=== PATIENT | female | born 1930 | race Caucasian/White ===

== ENCOUNTER 2016-10-05 18:32 | Observation (INO) | payer MEDICARE, MEDICAID ==
--- NOTE | 2016-10-05 19:08 | ED Physician Chart ---
Chief Complaint/HPI - Patient Information Date Seen:: 10/05/16 Time Seen:: 19:00 Chief Complaint:: Left supraorbital laceration. History of Present Illness:: Pt was brought in by ambulance from nursing facility, reportedly she tripped over another patient's wheelchair and sustained laceration at L supraorbital region. H & P are limited because pt has profound intellectual disability and is unable to cooperate. Info is primarily from review of limited transfer documents. Pt appears to be agitated. Last tetanus immunization is unknown. Allergies:: Allergies Allergy/AdvReac Type Severity Reaction Status Date / Time No Known Allergies Allergy Verified 10/05/16 18:52 Vitals:: Vital Signs - 8 hr 10/05/16 18:45 Temp 98.0 F HR 139 RR 16 BP 146/96 O2 Sat % 94 Historian:: Medical Records (from transferring facility.) Family MD/PCP:: Dr. Mijares LMP:: Postmenopausal. Review:: Nurse's Note Reviewed, Transfer documents Reviewed Review of Systems - Review of Systems General/Constitutional: Other (Pt does not cooperate for ROS.) Past Medical History - Past Medical History Past Medical History: PUD/GERD, Arthritis, Dementia, Other (osteopenia. L eye blindness.) Family History: Other (Pt is unable to provide info on FHx.) Social History: Care Facility, Other (Pt is unable to provide info on SHx.) Surgical History: other (pt is unable to provide info on Surgical Hx.) Psychiatricy History: Dementia Medication: Reviewed Family Medical History - Family Member Mother History Unknown: Yes Physical Exam - Physical Examination General/Constitutional: Awake, Well-developed, well-nourished, Alert, No distress (except appears to be agitated.), Non-toxic appearing, Ambulatory Other Gen/Cons comments:: Pt is ambulatory without assistance without difficulty. Other Head comments:: An approx 1.3 cm superficial laceration noticed at L supraorbital region that is naturally approximated. No erythema, swelling or exudate. No bony taperring. No active bleeding. No skull deformity. Eyes: Lids, conjuctiva normal, EOMI Other Eyes comments:: L eye has chronic changes with corneal opacification. Skin: No lymphadenopathy Other Skin comments:: see Head exam above. ENMT: External ears, nose nl, TM canals nl (No hemoptympanus), Nasal exam nl, Oropharynx nl, Tonsils nl Neck: Nontender, Full ROM w/o pain, No JVD, No nuchal rigidity, No mass, No stridor Respiratory: Nl effort/Exclusion, Clear to Auscultation, No Wheeze/Rhonchi/Rales Cardio Vascular: No murmur, gallop, rubs Other Cardio Vascular comments:: Regular rhythm with mild tachycardia. GI: No tenderness/rebounding/guarding, No organomegaly, No hernia, Normal BS's, Nondistended, No mass/bruits, No McBurney tenderness Other GI comments:: Abdomen is soft. Extremities: No edema Other Extremities comments:: All joints, including both hips, with spontaneous movements with good ROM. Both hips are nontender without detectabale abnormality. Other Neuro/Psych comments:: Alert. Spontaneous movements noticed in all 4 extremities. Pt responds to voice and tactile stimuli. Pt does not cooperate for full neurological exam. Misc: normal gait, Normal back, No paraspinal tenderness Labs/Radiology/EKG Results - Lab Results Results: Laboratory Tests 10/05/16 10/05/16 10/05/16 19:28 19:28 19:28 WBC RBC Hgb Hct MCV MCH MCHC Differential RDW Plt Count MPV Neutrophils % Lymphocytes % Monocytes % Eosinophils % Basophils % PT 9.5 INR 0.91 PTT (Actin FS) 25.4 L Sodium 136 Potassium 4.0 Chloride 106 Carbon Dioxide 23.9 Anion Gap 10.1 BUN 22 Creatinine 0.6 Est GFR ( Amer) TNP Est GFR (Non-Af Amer) TNP BUN/Creatinine Ratio 36.7 Glucose 132 H Calcium 8.9 Total Bilirubin 0.4 AST 17 ALT 12 Alkaline Phosphatase 72 Creatine Kinase 38 Troponin I < 0.01 L Total Protein 6.6 Albumin 3.5 L Globulin 3.1 Albumin/Globulin Ratio 1.1 10/05/16 20:22 WBC 11.2 H D RBC 4.83 Hgb 13.9 Hct 41.5 MCV 85.9 MCH 28.7 MCHC Differential 33.4 RDW 12.3 Plt Count 253 D MPV 8.0 Neutrophils % 79.2 Lymphocytes % 10.3 L Monocytes % 5.5 Eosinophils % 0.9 Basophils % 4.1 H PT INR PTT (Actin FS) Sodium Potassium Chloride Carbon Dioxide Anion Gap BUN Creatinine Est GFR ( Amer) Est GFR (Non-Af Amer) BUN/Creatinine Ratio Glucose Calcium Total Bilirubin AST ALT Alkaline Phosphatase Creatine Kinase Troponin I Total Protein Albumin Globulin Albumin/Globulin Ratio - Radiology Results Results: Head CT without contrast: Atrophy, sclerosis mastoids, ??nondisplaced fx left pareietal bone. Facial bone CT without contrast: Sinusitis. STS left orbit. The above are official reports per Dr. Kahlil Crockett, radiologist. I discussed with Dr. Crockett on the phone at about [id number] findings with ?nondisplaced fx left parietal bone. Dr. Crockett stated that the questionable fx in left parietal bone is minor and nondisplaced, so there is no neurosurgical emergency or treatment needed.. - EKG Interpretations EKG Time:: 19:33 Rhythm: Sinus tachycardia Rate: 132 Comments:: NSSTT changes. No acute ischemic changes. supervisor contact lens: Sinus tachycardia with VR 120. No ectopy. ED Septic Shock - . Is Septic Shock (SBP<90, OR Lactate>4 mmol\L) present?: No - <6hrs of presentation: Vital Signs: Vital Signs - 8 hr /12/17 18:45 Temp 98.0 F HR 139 RR 16 BP 146/96 O2 Sat % 94 Reassessment (Disposition) - Reassessment Reassessment:: 2150 Pt has been repeatedly evaluated. Pt has been calm and is at CT at the present. 2300 Pt has been calm with HR 90 to 100. Pt rests comfortably. CT reports just became available. Dr. Mijares is to be contacted. 0010 Case was discussed with Dr. Mijares with pertinent H & P, EKG, lab, and CT findings reviewed. He concurred with present management. Pt is to be admitted to [facility] for observation. Reassessment Condition:: Improved - Diagnosis Diagnosis:: s/p mechanical fall with superficial laceration at L supraorbital region at eyebrow level that approximates naturally. No suturing needed. Sinusitis. ? Nondisplaced fx Left parietal bone, stable without neurological emergency. Tachycardia related to mental agitation related to recent injury, stable and improved. Dementia - Patient Disposition Admitted to:: Med/Surg Admitting Medical Physician:: Joanna Mijares Time:: 00:15 Condition at Disposition:: Stable, Improved
[2016-10-05 19:52] LABS: INR 0.91 (0.5-1.4); PROTHROMBIN TIME (TEST) 9.5 SECONDS (9.5-11.5)
[2016-10-05 19:56] LABS: ALB/GLOB RATIO 1.1 (1.0-1.8); ALKALINE PHOSPHATASE 72 U/L (34-104); ANION GAP 10.1 (7.0-16.0); BILIRUBIN,TOTAL 0.4 mg/dL (0.3-1.0); BUN - UREA NITROGEN 22 mg/dL (7-25); BUN/CREATININE RATIO 36.7; CALCIUM SERUM 8.9 mg/dL (8.6-10.3); CARBON DIOXIDE 23.9 mEq/L (21.0-31.0); CHLORIDE 106 mEq/L (98-107); CREATININE - SERUM 0.6 mg/dL (0.6-1.2); GLUCOSE 132 mg/dL (70-105); SGOT 17 U/L (13-39); SGPT/ALT 12 U/L (7-52); SODIUM SERUM 136 mEq/L (136-145)
[2016-10-05 20:29] LABS: % BASOPHILS 4.1 % (0.0-2.0); % EOSINOPHILS 0.9 % (0.0-5.0); % LYMPHOCYTES 10.3 % (20.0-50.0); % MONOCYTES 5.5 % (2.0-10.0); % NEUTROPHILS 79.2 % (40.0-80.0); HEMATOCRIT 41.5 % (35.0-45.0); HEMOGLOBIN 13.9 gm/dL (11.7-16.1); MEAN CELL VOLUME 85.9 fl (81-100); MEAN CORPUSCULAR HEMOGLOBIN 28.7 pg (27.0-31.0); MEAN CORPUSCULAR HGB CONC 33.4 pg (28.0-36.0); NEUTROPHILE ABSOLUTE 8.8 Th/cmm (1.8-8.0); RED BLOOD COUNT 4.83 Mil/cmm (3.80-5.20); RED CELL DISTRIBUTION WIDTH 12.3 % (11.5-20.0)
[2016-10-05 20:33] LABS: PLATELET COUNT 253 Th/cmm (150-400); WHITE BLOOD COUNT 11.2 Th/cmm (4.8-10.8)
[2016-10-05] MEDS ORDERED: Triple Antibiotic 0.94 gm Pkt TP STA (23:06)
[2016-10-05] MEDS ORDERED: Sulfamethoxazole/TMP 800/160mg Tab PO ONE (23:07)
[2016-10-06] MEDS ORDERED: Fleet Enema 135 mL RC PRN ×2 (00:44→03:23)
[2016-10-06] MEDS ORDERED: Magnesium Hydroxide (MOM) 30 mL UDC PO PRN (00:44)
[2016-10-06] MEDS ORDERED: Triple Antibiotic 0.94 gm Pkt TP ONE (00:51)
[2016-10-06] MEDS ORDERED: Sulfamethoxazole/TMP 800/160mg Tab ONE (00:51)
[2016-10-06] MEDS ORDERED: Guaifenesin DM 10 ML UDC PO PRN (02:42)
[2016-10-06 05:53] LABS: % BASOPHILS 0.2 % (0.0-2.0); % EOSINOPHILS 0.3 % (0.0-5.0); % MONOCYTES 6.9 % (2.0-10.0); % NEUTROPHILS 78.6 % (40.0-80.0); HEMOGLOBIN 12.1 gm/dL (11.7-16.1); MEAN CELL VOLUME 84.6 fl (81-100); MEAN CORPUSCULAR HEMOGLOBIN 29.3 pg (27.0-31.0); MEAN CORPUSCULAR HGB CONC 34.7 pg (28.0-36.0); MEAN PLATELET VOLUME 8.6 fl; NEUTROPHILE ABSOLUTE 7.5 Th/cmm (1.8-8.0); PLATELET COUNT 256 Th/cmm (150-400); RED BLOOD COUNT 4.11 Mil/cmm (3.80-5.20); RED CELL DISTRIBUTION WIDTH 12.4 % (11.5-20.0); WHITE BLOOD COUNT 9.5 Th/cmm (4.8-10.8)
[2016-10-06 06:31] LABS: ALB/GLOB RATIO 1.1 (1.0-1.8); ALKALINE PHOSPHATASE 65 U/L (34-104); ANION GAP 8.4 (7.0-16.0); BILIRUBIN,TOTAL 0.4 mg/dL (0.3-1.0); BUN - UREA NITROGEN 21 mg/dL (7-25); CALCIUM SERUM 8.1 mg/dL (8.6-10.3); CARBON DIOXIDE 25.3 mEq/L (21.0-31.0); CHLORIDE 107 mEq/L (98-107); CREATININE - SERUM 0.5 mg/dL (0.6-1.2); GLUCOSE 117 mg/dL (70-105); MAGNESIUM 2.1 mg/dL (1.9-2.7); POTASSIUM SERUM 3.7 mEq/L (3.5-5.1); SGOT 21 U/L (13-39); SGPT/ALT 16 U/L (7-52); SODIUM SERUM 137 mEq/L (136-145)
[2016-10-06 07:37] LABS: HEMATOCRIT 34.8 % (35.0-45.0)
[2016-10-06] MEDS ORDERED: Guaifenesin DM 10 ML UDC PO SCH (09:00)
[2016-10-06] MEDS: Multivitamin w/ Minerals Tab PO SCH (09:16)
[2016-10-06] MEDS: Calcium Carb/Vit D 500 mg/200 U Tab PO SCH ×2 (09:17→17:29)
--- NOTE | 2016-10-06 09:42 | Diagnostic Imaging Report ---
CT scan of the brain without intravenous contrast HISTORY: Headache, trauma Total DLP equals 516 CTDI equals 32.9 Axial sections were obtained from the base of the skull to the vertex. There is enlargement of the ventricular system along with enlargement cerebral sulci and subarachnoid cisterns reflecting atrophy. No acute parenchymal abnormalities. No intracerebral hemorrhage. No mass effect or shift of midline structures. No extra-axial masses or abnormal fluid collections There is deformity involving the left parietal region of the skull with sclerotic margins. Findings may be associated with an old fracture. This is unchanged from prior exam of July 24, 2015. Sclerotic change involves the mastoid air cells system with inflammatory sequelae. Extensive mucosal thickening noted throughout the ethmoid sinuses and visualized portions of the maxillary sinuses. IMPRESSION: 1. No acute abnormalities 2. Cerebral atrophy 3. Mild deformity involving the left parietal bone of the skull with sclerotic margins that is unchanged from 07/22/2015. Findings may be related to an old fracture. 4. Sclerotic mastoid air cells consistent with inflammatory sequelae 5. Extensive mucosal thickening throughout the ethmoid sinuses and visualized portions of the maxillary sinuses
--- NOTE | 2016-10-06 09:44 | Diagnostic Imaging Report ---
CT scan facial bones HISTORY: Pain, trauma Total DLP equals 194 CTDI equals 15.6 Axial sections were obtained through the facial bones. Additional sagittal and coronal reformatted images are provided. There is retention of normal bony margins about the orbits. No fractures. The zygomatic arches are intact. The pterygoid plates are intact. Nasal bones appear normal. There is extensive severe mucosal thickening throughout the ethmoid, sphenoid, and maxillary sinuses. IMPRESSION: 1. No acute bony abnormalities 2. Extensive mucosal thickening throughout the maxillary, ethmoid, and sphenoid sinus regions.
[2016-10-06] MEDS: D5-0.45NS 1,000 ML IV SCH (17:29)
[2016-10-07 05:35] LABS: % BASOPHILS 0.5 % (0.0-2.0); % EOSINOPHILS 0.8 % (0.0-5.0); % LYMPHOCYTES 12.9 % (20.0-50.0); % MONOCYTES 8.8 % (2.0-10.0); HEMATOCRIT 36.6 % (35.0-45.0); HEMOGLOBIN 12.5 gm/dL (11.7-16.1); MEAN CELL VOLUME 86.1 fl (81-100); MEAN CORPUSCULAR HEMOGLOBIN 29.3 pg (27.0-31.0); MEAN CORPUSCULAR HGB CONC 34.1 pg (28.0-36.0); MEAN PLATELET VOLUME 8.2 fl; PLATELET COUNT 235 Th/cmm (150-400); RED BLOOD COUNT 4.25 Mil/cmm (3.80-5.20); RED CELL DISTRIBUTION WIDTH 12.3 % (11.5-20.0)
[2016-10-07 05:53] LABS: ALB/GLOB RATIO 1.1 (1.0-1.8); ALKALINE PHOSPHATASE 66 U/L (34-104); BILIRUBIN,TOTAL 0.6 mg/dL (0.3-1.0); BUN - UREA NITROGEN 16 mg/dL (7-25); CARBON DIOXIDE 25.3 mEq/L (21.0-31.0); CHLORIDE 107 mEq/L (98-107); CREATININE - SERUM 0.5 mg/dL (0.6-1.2); GLUCOSE 130 mg/dL (70-105); POTASSIUM SERUM 3.3 mEq/L (3.5-5.1); SGOT 18 U/L (13-39); SGPT/ALT 15 U/L (7-52); SODIUM SERUM 138 mEq/L (136-145)
[2016-10-07 06:02] LABS: WHITE BLOOD COUNT 14.4 Th/cmm (4.8-10.8)
[2016-10-07] MEDS: D5-0.45NS 1,000 ML IV SCH ×2 (06:40→21:46)
[2016-10-07] MEDS ORDERED: cefTRIAXone 1 GM in Sodium Chloride 0.9% 50 ML IV SCH (08:15)
[2016-10-07] MEDS: Calcium Carb/Vit D 500 mg/200 U Tab PO SCH ×2 (09:23→17:04)
[2016-10-07] MEDS: Multivitamin w/ Minerals Tab PO SCH (09:24)
--- NOTE | 2016-10-07 10:26 | History & Physical ---
CHIEF COMPLAINT: Status post mechanical fall of left supraorbital bruising and laceration. HISTORY OF PRESENT ILLNESS: This is an 86-year-old female with a history of dementia, intellectual disability, acid reflux disease, encephalopathy, who apparently fell down at [facility] and fell down and she tripped on her neighbor's wheelchair and ended up hitting her left supraorbital region. The patient was transferred to ER where a CT of the head showed no acute abnormalities. There was mild deformity involving the left parietal bone of the skull with sclerotic margins that is unchanged from 07/22/2015 and there was also a maxillofacial CT done at the ER showing no acute bony abnormalities. There was extensive mucosal thickening throughout the maxillary, ethmoid, sphenoid sinus rhythm. The patient has been admitted for further management and care. PAST MEDICAL HISTORY: As noted above. PAST SURGICAL HISTORY: Unknown. FAMILY HISTORY: Likely noncontributory. SOCIAL HISTORY: No tobacco, ETOH or illicit drug usage. Lives at [facility]. ALLERGIES: NKDA. OUTPATIENT MEDICATIONS: Tylenol 325 q. 4 p.r.n., ibuprofen 400 mg q. 8 hours p.r.n. for pain, Dulcolax 10 mg every day, calcium carbonate with vitamin D3 daily, famotidine 20 mg every day, Fleet enema 135 mL every day, phenergan DM 10 mL every day, milk of magnesia 30 mL q. 72 hours, multivitamins every day and she is on to Tamoxifen 20 mg every day. REVIEW OF SYSTEMS: Unable to be done given the patient's condition. PHYSICAL EXAMINATION: VITAL SIGNS: T-current 98.3, pulse 90, respirations 18, BP 110/62, satting 96% on room air. GENERAL: She is a well-developed elderly female who appears to be comfortable, not in acute distress. EXTREMITIES: There is a mild area of redness around the left supraorbital region and there is a laceration, but no erythema, swelling or exudate noted. There is no active bleeding at this time. HEENT: Appears to be otherwise within normal limits. NECK: There is no JVD or LAD. CARDIOVASCULAR: Regular rate and rhythm without any murmurs. LUNGS: Decreased, but clear to auscultation bilaterally. ABDOMEN: Soft, supple, nontender, nondistended, normoactive bowel sounds. EXTREMITIES: There is no edema in lower extremities. NEUROLOGIC: Difficult to assess as the patient does not follow commands, but appears to be nonfocal at this time. LABORATORY DATA: On admission, white count 11.2. Chemistry panel was within normal limits with glucose 132. Troponins are negative x 1 set. Liver function was normal. DIAGNOSTICS: On CT of the brain, no acute abnormalities, cerebral atrophy, mild deformity of the left parietal bone of the skull with sclerotic margins that is unchanged from 07/22/2015, sclerotic mastoid air cells consistent with inflammatory sequela and there is maxillofacial CT done on admission showing no acute bony abnormalities and extensive mucosal thickening throughout the maxillary, ethmoid and sphenoid sinus regions. IMPRESSION AND PLAN: 1. Status post fall with left supraorbital contusion, laceration. 2. Maxillary, ethmoid and sphenoid sinusitis. 3. History of acid reflux disease. 4. History of chronic encephalopathy. 6. Intellectual disability. 7. Leukocytosis. PLAN: The patient has been admitted to the medical floor for further management and care. The patient has been placed on some IV fluids and will be kept on her Motrin t.i.d. I will also put the patient on local skin care given her allergy. I will also place the patient on empiric IV antibiotics and will ask for a UA. She will be kept on her other medications as scheduled. JOB# [id number] RADHA
[2016-10-07 19:35] LABS: URINE BILIRUBIN NEGATIVE (NEGATIVE); URINE BLOOD NEGATIVE (NEGATIVE); URINE COLOR YELLOW; URINE GLUCOSE (UA) NEGATIVE (NEGATIVE); URINE KETONE NEGATIVE (NEGATIVE); URINE PROTEIN TRACE mg/dL (NEGATIVE)
[2016-10-07 19:36] LABS: URINE BACTERIA 1+ /hpf (NONE SEEN); URINE EPITHELIAL CELLS MANY /lpf (FEW); URINE RBC 0-1 /hpf (0-5)
[2016-10-08 05:59] LABS: % BASOPHILS 0.7 % (0.0-2.0); % EOSINOPHILS 4.6 % (0.0-5.0); % LYMPHOCYTES 22.5 % (20.0-50.0); % MONOCYTES 12.8 % (2.0-10.0); % NEUTROPHILS 59.4 % (40.0-80.0); HEMATOCRIT 36.1 % (35.0-45.0); HEMOGLOBIN 12.3 gm/dL (11.7-16.1); MEAN CELL VOLUME 85.1 fl (81-100); MEAN CORPUSCULAR HGB CONC 34.1 pg (28.0-36.0); MEAN PLATELET VOLUME 8.7 fl; NEUTROPHILE ABSOLUTE 5.7 Th/cmm (1.8-8.0); PLATELET COUNT 226 Th/cmm (150-400); RED BLOOD COUNT 4.24 Mil/cmm (3.80-5.20); RED CELL DISTRIBUTION WIDTH 12.3 % (11.5-20.0)
[2016-10-08 06:13] LABS: WHITE BLOOD COUNT 9.6 Th/cmm (4.8-10.8)
[2016-10-08 06:16] LABS: ANION GAP 7.9 (7.0-16.0); BUN - UREA NITROGEN 10 mg/dL (7-25); BUN/CREATININE RATIO 16.7; CARBON DIOXIDE 23.2 mEq/L (21.0-31.0); CHLORIDE 111 mEq/L (98-107); CREATININE - SERUM 0.6 mg/dL (0.6-1.2); GLUCOSE 109 mg/dL (70-105); MAGNESIUM 2.1 mg/dL (1.9-2.7); POTASSIUM SERUM 3.1 mEq/L (3.5-5.1); SODIUM SERUM 139 mEq/L (136-145)
[2016-10-08] MEDS ORDERED: Potassium Chloride 20 mEq ER Tab PO ONE (09:27)
--- NOTE | 2016-10-08 09:29 | Diagnostic Imaging Report ---
CHEST X-RAY: AP view INDICATION: Leukocytosis COMPARISON: Chest x-ray 07/24/2015 FINDINGS: Increased interstitial lung markings are noted. No focal consolidation or effusions. Borderline prominent heart is noted. Suboptimal lung volume are noted. Degenerative changes of the spine are noted. IMPRESSION: Increased interstitial lung markings, likely chronic. Note that the infiltrate of the right midlung cannot be excluded.
[2016-10-08] MEDS: Multivitamin w/ Minerals Tab PO SCH (09:54)
[2016-10-08] MEDS: Calcium Carb/Vit D 500 mg/200 U Tab PO SCH (09:54)
[2016-10-08] MEDS: D5-0.45NS 1,000 ML IV SCH (12:04)
--- NOTE | 2016-10-08 20:43 | Discharge Summary ---
ADMITTING DIAGNOSES: 1. Status post fall. 2. Left supraorbital contusion with laceration. 3. Maxillary ethmoid and sphenoid sinusitis. 4. Leukocytosis. 5. Hypokalemia. SECONDARY DIAGNOSES: Include history of acid reflux disease, history of chronic encephalopathy, history of intellectual disability. DISCHARGE DIAGNOSES: 1. Status post fall. 2. Left supraorbital contusion with laceration. 3. Maxillary ethmoid and sphenoid sinusitis. 4. Leukocytosis, resolved. 5. Hypokalemia, resolved. CONSULTANTS: There was no practice management consultant used during this admission. MAJOR PROCEDURES: CT of the brain showing no acute abnormalities. It showed cerebral atrophy, mild deformity of the left parietal bone of the skull and sclerotic margins are unchanged from 07/22/2015. There is also sclerotic mastoid air cells consistent with inflammatory sequelae. There was also a CT scan of the facial bones showing no acute abnormalities and there was extensive mucosal thickening throughout the maxillary, ethmoid, and sphenoid sinus regions. MEDICATIONS ON DISCHARGE: Ciprofloxacin 250 b.i.d. x 7 days, Dulcolax 10 mg q. 96 hours p.r.n. for severe constipation, Tylenol 650 q.4h. p.r.n. for fever or pain, Pepcid 20 mg at bedtime, fleet enema p.r.n. for severe constipation, Motrin 400 mg t.i.d. with meals, milk of magnesia 30 mL p.r.n. for mild constipation, multivitamins and minerals, and Tamoxifen 20 mg every day. BRIEF HOSPITAL COURSE: An 86-year-old female, who presented from [facility] with a contusion on the left supraorbital region. The patient had very small laceration and some bruising and on labs, she had a white count of 11.2 which by hospital day 2 had gone up to 14.4. The patient was treated with IV antibiotics and wound care and underwent above-mentioned diagnostics. She was also placed on low dose NSAIDs and other supportive care. Her white count did improve to a level of 9.6 and UA was consistent with UTI. CONDITION ON DISCHARGE: Stable. DISPOSITION: The patient will be discharged to [facility] on the above-mentioned medications. The patient will be followed up by her primary care doctor within 2-3 days. [facility]# [id number]
== END 2016-10-08 14:30 ==
LOC: ER 18:32 → MSI 10-06 00:15
PROVIDERS: ADMIT Internal Medicine; ATTEND Internal Medicine
DX: S01.81XA Laceration without foreign body of other part of head, initial encounter (principal); W18.09XA Striking against other object with subsequent fall, initial encounter; Y93.89 Activity, other specified; Y92.89 Other specified places as the place of occurrence of the external cause; Y99.8 Other external cause status; J32.2 Chronic ethmoidal sinusitis; J32.3 Chronic sphenoidal sinusitis; K21.9 Gastro-esophageal reflux disease without esophagitis; G93.40 Encephalopathy, unspecified; F79 Unspecified intellectual disabilities; D72.829 Elevated white blood cell count, unspecified
CPT/HCPCS: 99285; 96372; 93005; 70450; 70486; 84484; 36415 ×4; 85025 ×4; 85610; 82550; 80053 ×3; 87081; 90715; 97163; 97116 ×3; 83735 ×3; 97530 ×2; 81001; 96365; 96361; 96375; 97110; 71010; 80048; J2060 ×4; G0378 ×63; J0696; X3904; Z7610

== ENCOUNTER 2016-11-19 08:13 | Inpatient (IN) | payer MEDICARE, MEDICAID ==
[2016-11-19 08:22] VITALS: BP 130/100
[2016-11-19] MEDS ORDERED: ceFAZolin 1 GM in Sodium Chloride 0.9% 50 ML IV ONE (08:52)
--- NOTE | 2016-11-19 08:59 | ED Physician Chart ---
Chief Complaint/HPI - Patient Information Date Seen:: 11/19/16 Time Seen:: 08:54 Chief Complaint:: l forehead infection, l eye problem History of Present Illness:: pt was sent from [place] for this problem w not much info given. pt was started on keflex for a left scalp ?abscess a day or so ago. now ther is concern that rednedd has passed to damon left eye region. 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 she saw dr cr yesterday. no known fever. pt has dementia and cant answer any questions or comply w exam. Allergies:: Allergies Allergy/AdvReac Type Severity Reaction Status Date / Time No Known Allergies Allergy Verified 10/05/16 18:52 Vitals:: Vital Signs - 8 hr 11/19/16 08:22 Temp 99.3 F HR 111 RR 16 BP 130/100 Historian:: Medical Records Review:: Transfer documents Reviewed Review of Systems - Review of Systems General/Constitutional: No fever, No chills, No weight loss, No weakness, No diaphoresis, No edema, No loss of appetite Skin: No skin lesions, No rash, No bruising Head: No headache, No light-headedness Eyes: No loss of vision, Pain, No diplopia, Other (edema at l eyelid...) ENT: No earache, No nasal drainage, No sore throat, No tinnitus Neck: No neck pain, No swelling, No thyromegaly, No stiffness, No mass noted Cardio Vascular: No chest pain, No palpitations, No PND, No orthopnea, No edema Pulmonary: No SOB, No cough, No sputum, No wheezing GI: No nausea, No vomiting, No diarrhea, No pain, No melena, No hematochezia, No constipation, No hematemesis G/U: No dysuria, No frequency, No hematuria Musculoskeletal: No bone or joint pain, No back pain, No muscle pain Endocrine: No polyuria, No polydipsia Psychiatric: No prior psych history, No depression, No anxiety, No suicidal ideation, Other (nonverbal) Hematopoietic: No bruising, No lymphadenopathy Allergic/Immuno: No urticaria, No angioedema Neurological: No syncope, No focal symptoms, No weakness, No paresthesia, No headache, No seizure, No dizziness, Confusion, No vertigo Past Medical History - Past Medical History Past Medical History: PUD/GERD, Other (mental retardation, l eye reduced vision chronic, ?breast ca hx (guess by meds)) Social History: Care Facility Medication: Reviewed Family Medical History - Family Member Mother History Unknown: Yes Ethnicity: Living Status: Unknown Physical Exam - Physical Examination General/Constitutional: Awake, Well-developed, well-nourished, Alert, No distress, GCS 15, Non-toxic appearing, Ambulatory Other Gen/Cons comments:: pt has dementia and cant answer any questions or comply w exam. she cant communicate by any means. she fights me when ever I get close to her scalp wound or l eye. l scalp has a red warmth lt dicsoloration over aprox upper scalp and r side desc to around lt eye. 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 there is a small woundat left midd upper scalp about 2-3 cm w soft underlying fluctuance. has crusted scab on top..appears to have been draining already. Head: Atraumatic Eyes: Lids, conjuctiva normal, PERRL, EOMI Skin: Nl inspection, No rash, No skin lesions, No ecchymosis, Well hydrated, No lymphadenopathy ENMT: External ears, nose nl, Nasal exam nl, Lips, teeth, gums nl Neck: Nontender, Full ROM w/o pain, No JVD, No nuchal rigidity, No bruit, No mass, No stridor Respiratory: Nl effort/Exclusion, Clear to Auscultation, No Wheeze/Rhonchi/Rales Cardio Vascular: RRR, No murmur, gallop, rubs, NL S1 S2 GI: No tenderness/rebounding/guarding, No organomegaly, No hernia, Normal BS's, Nondistended, No mass/bruits, No McBurney tenderness : No CVA tenderness Extremities: No tenderness or effusion, Full ROM, normal strength in all extremities, No edema, Normal digits & nails Neuro/Psych: Alert/oriented, DTR's symmetric, Normal sensory exam, Normal motor strength, Judgement/insight normal, Mood normal, Normal gait, No focal deficits Misc: normal gait, Normal back, No paraspinal tenderness Labs/Radiology/EKG Results - Lab Results Results: Laboratory Tests 11/19/16 11/19/16 11/19/16 09:05 09:05 09:05 WBC 15.4 H D RBC 4.44 Hgb 12.9 Hct 37.7 MCV 85.0 MCH 29.1 MCHC Differential 34.2 RDW 12.7 Plt Count 329 D MPV 7.5 Neutrophils (Manual) 72 Lymphocytes 17 L Monocytes 8 Eosinophils 3 Platelet Estimate ADEQUATE Sodium 139 Potassium 3.9 Chloride 104 Carbon Dioxide 27.9 Anion Gap 11.0 BUN 16 Creatinine 0.6 Est GFR ( Amer) TNP Est GFR (Non-Af Amer) TNP BUN/Creatinine Ratio 26.7 Glucose 103 Whole Bld Lactic Acid 1.02 Calcium 9.1 Total Bilirubin 0.4 AST 15 ALT 14 Alkaline Phosphatase 77 Total Protein 6.3 Albumin 3.5 L Globulin 2.8 Albumin/Globulin Ratio 1.3 - Radiology Results Results: ct head/ orbits- diffuses sts /inflm change of left scalp cellulitis w phlegmon formation. ?small sebacious cyst. nonvisualization of left lenze, small gas pocket along l preseptal region. sclerosis of bilat mastoid air cells ?chronic infl process Assessment - Assessment General Assessment: cellulitis of left face/scalp. mastoiditis poss preseptal cellulitis on left eye. Critical Care Time: 70 Excludes all billable procedures: Yes This condition life threatening/high prob of deterioration: Yes Assessment/Comments:: iv abx, ct scan blood work dx.... ED Septic Shock - . Is Septic Shock (SBP<90, OR Lactate>4 mmol\L) present?: No - <6hrs of presentation: Vital Signs: Vital Signs - 8 hr 11/19/16 08:22 Temp 99.3 F HR 111 RR 16 BP 130/100 Reassessment (Disposition) - Reassessment Reassessment:: miguel angel waldrop at 1:40p..admit to ms Reassessment Condition:: Unchanged - Diagnosis Diagnosis:: 1 cellulitis w phlegmon left face/scalp. 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 abscess and/or sebacious cyst left scalp. - Aftercare/Follow up Instructions Aftercare/Follow-Up Instructions:: Counseled pt regarding lab results/diagnosis & need follow up - Patient Disposition Admitted to:: Med/Surg Condition at Disposition:: Unchanged
[2016-11-19 09:15] LABS: HEMATOCRIT 37.7 % (35.0-45.0); HEMOGLOBIN 12.9 gm/dL (11.7-16.1); MEAN CORPUSCULAR HEMOGLOBIN 29.1 pg (27.0-31.0); MEAN CORPUSCULAR HGB CONC 34.2 pg (28.0-36.0); MEAN PLATELET VOLUME 7.5 fl; RED BLOOD COUNT 4.44 Mil/cmm (3.80-5.20); RED CELL DISTRIBUTION WIDTH 12.7 % (11.5-20.0)
[2016-11-19 09:23] LABS: PLATELET COUNT 329 Th/cmm (150-400); WHITE BLOOD COUNT 15.4 Th/cmm (4.8-10.8)
[2016-11-19 09:37] LABS: EOSINOPHIL 3 % (0-5); NEUTROPHILS 72 % (40-80); PLATELET ESTIMATE ADEQUATE (NORMAL); TOTAL CELLS COUNTED 100
[2016-11-19 09:57] LABS: ALB/GLOB RATIO 1.3 (1.0-1.8); ALKALINE PHOSPHATASE 77 U/L (34-104); BILIRUBIN,TOTAL 0.4 mg/dL (0.3-1.0); BUN - UREA NITROGEN 16 mg/dL (7-25); BUN/CREATININE RATIO 26.7; CALCIUM SERUM 9.1 mg/dL (8.6-10.3); CHLORIDE 104 mEq/L (98-107); CREATININE - SERUM 0.6 mg/dL (0.6-1.2); GLUCOSE 103 mg/dL (70-105); POTASSIUM SERUM 3.9 mEq/L (3.5-5.1); SGOT 15 U/L (13-39); SGPT/ALT 14 U/L (7-52); SODIUM SERUM 139 mEq/L (136-145)
[2016-11-19 10:13] LABS: CARBON DIOXIDE 27.9 mEq/L (21.0-31.0)
--- NOTE | 2016-11-19 11:30 | Diagnostic Imaging Report ---
Head CT without intravenous contrast Indication: Pain, soft tissue swelling, possible abscess Comparison: CT facial bone the same day and CT abdomen on 10/06/2015 Technique: Axial images were obtained from the vertex to the skull base without IV contrast. Coronal reconstructions were made. Total DLP: 609, [id number] FINDINGS: Images of the brain obtained without contrast demonstrate no evidence of an acute hemorrhage. Mild atrophy is noted. The ventricles and basal cisterns are patent. No mass effect or midline shift. There is soft tissue swelling and inflammatory changes seen throughout the scalp. There may be a sebaceous cyst of the left frontal parietal scalp. Soft tissue swelling extends to forehead region and left preseptal region. Diffuse edema seen throughout these regions. No skull fracture. Sclerotic bilateral mastoid air cells are noted. IMPRESSION: No acute intracranial abnormality. Diffuse soft tissue swelling and inflammatory changes throughout the left scalp extending to the left forehead and left preseptal region. There may be small amount of fluid in these regions. Please correlate clinically as findings may be due to cellulitis and possible early phlegmon formation. There may also be a small sebaceous cyst of the left frontal parietal region. Note exam is limited due to lack of IV contrast Mild atrophy. Sclerotic bilateral mastoid air cells which may be due to underlying chronic inflammatory process.
--- NOTE | 2016-11-19 11:35 | Diagnostic Imaging Report ---
CT of the orbits without IV contrast History: Soft tissue swelling possible infection Comparison: CT head performed the same day Technique: Axial images of the facial bones and orbits were obtained without IV contrast. Reconstructions were made. Total DLP to 18, CTD I 15.8 Findings: There is diffuse soft tissue swelling of the left forehead and left preseptal region with areas of mild edema. There may be minimal fluid in these regions. There is nonvisualization of the left lens with pocket of gas noted along the left preseptal region. The left globe is intact. There is tortuosity of the bilateral optic nerves. The bilateral intraconal compartments are intact. Soft tissue swelling inflammatory changes extend to the left facial and left zygomatic regions. There is mucosal thickening throughout the paranasal sinuses. Sclerotic bilateral mastoid air cells are noted. No evidence of an acute fracture. Degenerative changes of bilateral TMJ joints are noted. IMPRESSION: Soft tissue swelling and inflammatory changes throughout the left facial region, left forehead and left preseptal region. There may be minimal fluid in these regions and possible early phlegmonous changes. Please correlate clinically for cellulitis. Follow-up is recommended. Note exam was limited due to lack of IV contrast. Nonvisualization of the left lens. A small pocket of gas is also seen along the left preseptal region. Please correlate with ophthalmologic examination. Nonspecific tortuosity of bilateral optic nerves Mucosal thickening throughout the paranasal sinuses Sclerotic bilateral mastoid air cells which may be due to chronic inflammatory process.
[2016-11-19] MEDS ORDERED: Fleet Enema 135 mL RC PRN (15:16)
[2016-11-19] MEDS ORDERED: Magnesium Hydroxide (MOM) 30 mL UDC PO PRN (15:16)
[2016-11-19 15:37] LABS: URINE BILIRUBIN NEGATIVE (NEGATIVE); URINE BLOOD NEGATIVE (NEGATIVE); URINE COLOR YELLOW; URINE GLUCOSE (UA) NEGATIVE (NEGATIVE); URINE KETONE NEGATIVE (NEGATIVE); URINE PROTEIN NEGATIVE (NEGATIVE); URINE UROBILINOGEN 0.2 E.U./dL (0.2 - 1.0)
[2016-11-19 15:38] LABS: URINE BACTERIA NONE SEEN /hpf (NONE SEEN); URINE EPITHELIAL CELLS NONE SEEN /lpf (FEW); URINE RBC NONE SEEN /hpf (0-5); URINE WBC NONE SEEN /hpf (0-5)
[2016-11-19] MEDS ORDERED: cefTRIAXone 1 GM in Sodium Chloride 0.9% 50 ML IV SCH (16:00)
[2016-11-19] MEDS: Calcium Carb/Vit D 500 mg/200 U Tab PO SCH (17:50)
[2016-11-19] MEDS: cefTRIAXone 1 GM in 0.9% NS 50 ML IV SCH (17:50)
--- NOTE | 2016-11-19 19:49 | Admit Criteria Form ---
Admit Criteria Forms - Admit Criteria Diagnosis: CELLULITIS Clinical Indications for Admission to Inpatient Care (Place 'X' for any and all applicable criteria): Admission is indicated for ANY ONE of the following(1)(2)(3)(4)(5): [ ]I. Limb-threatening infection [ ]II. High-risk comorbid condition as indicated by ANY ONE of the following: [ ]a) Uncontrolled diabetes (eg, HbA1c greater than 10% (0.1)) [ ]b) Cirrhosis [ ]c) Neutropenia [ ]d) Asplenia [ ]e) Immunosuppression [ ]f) Symptomatic heart failure [ ]III. Failure of outpatient therapy as indicated by ALL of the following: [ ]a) Progression or no improvement after adequate trial (minimum of 48 hours, with longer period for stable lower extremity infection) [ ]b) Adequate antibiotic regimen as indicated by use of ANY ONE of the following: [ ]i) First-generation cephalosporin (e.g., cephalexin) [ ]ii) Antistaphylococcal penicillin (e.g., dicloxacillin) [ ]iii) Penicillin-allergic patient regimen (clindamycin, extended-spectrum fluoroquinolone, or doxycycline) [ ]iv) Resistant organism (eg, methicillin-resistant Staphylococcus aureus) regimen (6) [ ]c) Outpatient intravenous therapy regimen is not appropriate due to ANY ONE of the following. (7)(8)(9)(10): [ ]i) It was tried and was not successful (eg, progression of infection). [ ]ii) It is not available or cannot be arranged in a clinically appropriate time frame (e.g., the next day). [ ]iii) Clinical presentation (eg, acuity of infection, rapidity of progression, confirmed or suspected bacteremia) is judged to require ALL of the following: [ ]1) Immediate initiation of intravenous therapy ( eg, cannot wait for next day) [ ]2) Intensity of patient monitoring and observation (eg, vital sign measurement, checks for infection progression) that cannot be provided at other than inpatient level of care [ ]IV. Mental status changes [ ]V. Bacteremia [ ]. Hemodynamic instability [ ]VII. Suspected necrotizing soft tissue infection (e.g., gas in tissue)(11)( 12) [ ]VIII. Orbital infection (13)(14) [ ]IX. Associated surgical procedure (e.g., abscess drainage, debridement) not amenable to outpatient, emergency department, or observation care [ ]X. Cutaneous gangrene [ ]XI. High fever (temperature greater than 39.5 degrees C (103.1 degrees F) (oral)) not responsive to outpatient, emergency department, or observation care therapy [X]XIII. Inpatient admission required rather than observation care (Also use Cellulitis: Observation Care as appropriate) because of ANY ONE of the following : [ ]a) Periorbital or perineal infection that is severe or worsening [ ]b) Severe pain requiring acute inpatient management [ ]c) IV fluid to replace significant ongoing (e.g., for over 24 hours) losses (greater than 3L/m2 per day) [ ]d) Compartment syndrome monitoring (17) [ ]e) Strict or protective (eg, laminar flow) isolation [ ]f) Urgent debridement or skin grafting [ ]g) Bone or joint debridement [ ]h) Immediate inpatient surgery [X]i) Other condition, treatment or monitoring requiring inpatient admission Extended stay beyond goal length of stay may be needed for (1)(18): [ ]a) Necrotizing soft tissue infection or fasciitis [ ]b) Gram-negative infection [ ]c) Methicillin-resistant Staphylococcal aureus (MRSA) infection [ ]d) Peripheral venous insufficiency with cellulitis [ ]e) Extensive edema [ ]f) Sepsis or continued Hemodynamic instability [ ]g) Continued high fever or mental status change [ ]h) Bacteremia [ ]i) Active serious comorbid conditions ( eg, heart failure, renal insufficiency) The original [facility] [employer] content created by [employer] [facility] [employer] has been revised. The portions of the content which have been revised are identified through the use of italic text or in bold, and [facility] has neither reviewed nor approved the modified material. All other unmodified content is copyright [facility] Please see references footnoted in the original [employer] edition 2016 Admit Criteria Met?: Yes
[2016-11-19] MEDS ORDERED: Guaifenesin DM 10 ML UDC PO SCH (21:00)
[2016-11-20 06:04] LABS: % BASOPHILS 0.7 % (0.0-2.0); % EOSINOPHILS 3.7 % (0.0-5.0); % LYMPHOCYTES 21.5 % (20.0-50.0); % MONOCYTES 7.5 % (2.0-10.0); % NEUTROPHILS 66.6 % (40.0-80.0); HEMATOCRIT 38.1 % (35.0-45.0); HEMOGLOBIN 12.8 gm/dL (11.7-16.1); MEAN CELL VOLUME 85.1 fl (81-100); MEAN CORPUSCULAR HEMOGLOBIN 28.7 pg (27.0-31.0); MEAN CORPUSCULAR HGB CONC 33.7 pg (28.0-36.0); MEAN PLATELET VOLUME 8.2 fl; NEUTROPHILE ABSOLUTE 8.8 Th/cmm (1.8-8.0); PLATELET COUNT 348 Th/cmm (150-400); RED BLOOD COUNT 4.47 Mil/cmm (3.80-5.20); RED CELL DISTRIBUTION WIDTH 12.6 % (11.5-20.0)
[2016-11-20 06:08] LABS: WHITE BLOOD COUNT 13.2 Th/cmm (4.8-10.8)
[2016-11-20 06:25] LABS: ALB/GLOB RATIO 1.1 (1.0-1.8); ALKALINE PHOSPHATASE 69 U/L (34-104); BILIRUBIN,TOTAL 0.4 mg/dL (0.3-1.0); BUN - UREA NITROGEN 16 mg/dL (7-25); BUN/CREATININE RATIO 26.7; CALCIUM SERUM 8.7 mg/dL (8.6-10.3); CARBON DIOXIDE 25.8 mEq/L (21.0-31.0); CHLORIDE 107 mEq/L (98-107); CREATININE - SERUM 0.6 mg/dL (0.6-1.2); GLUCOSE 82 mg/dL (70-105); MAGNESIUM 2.4 mg/dL (1.9-2.7); POTASSIUM SERUM 3.8 mEq/L (3.5-5.1); SGOT 13 U/L (13-39); SGPT/ALT 12 U/L (7-52); SODIUM SERUM 139 mEq/L (136-145)
[2016-11-20] MEDS: Multivitamin w/ Minerals Tab PO SCH (08:41)
[2016-11-20] MEDS: Calcium Carb/Vit D 500 mg/200 U Tab PO SCH ×2 (08:41→16:39)
[2016-11-20] MEDS ORDERED: TAMOXIFEN CITRATE 20 MG PO SCH (09:00)
--- NOTE | 2016-11-20 12:56 | History & Physical ---
ADMIT DATE: 11/20/2016 CHIEF COMPLAINT: Left scalp swelling, redness and left periorbital redness. HISTORY OF PRESENT ILLNESS: This is an 86-year-old female resident of [facility] with history significant for intellectual disability/mental retardation, osteoarthritis, generalized muscular weakness, history of anxiety, anemia, acid reflux disease, peptic ulcer disease, also history of arrhythmia, status post pacemaker placement, who was brought in into the ER with a 1-2 day history of left scalp swelling, redness and scab formation, now also with left facial, forehead and periorbital redness. There is no other history available as the patient is nonverbal and there is no documentation of fevers at the [facility] and [facility]. Pertinent findings at the ER included a white count of 15.4. The patient now has been admitted for further management and care. 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 There is also history of right eye stigmatism, history of UTIs, hemorrhoids, osteopenia and colonic polyps, history of breast CA. PAST SURGICAL HISTORY: Unknown. FAMILY HISTORY: Unknown. SOCIAL HISTORY: There is no history of tobacco, ETOH or illicit drug usage. She lives at [facility] and care under the care of Dr. Pedroza. ALLERGIES: NKDA. OUTPATIENT MEDICATIONS: Dulcolax suppository q. 96 hours p.r.n. for moderate constipation, famotidine 20 mg every day, Fleet enema p.r.n. q. 96 hours for severe constipation, Motrin 200 mg 2 tablets q. 8 hours p.r.n. for pain, MOM 30 mL q. 72 hours p.r.n. for mild constipation, multivitamins every day, calcium with vitamin D 1 tab b.i.d., tamoxifen 1 tab every day, Tylenol 650 q. 4 hours p.r.n. for fever or pain. REVIEW OF SYSTEMS: Unable to be obtained given the patient's condition. PHYSICAL EXAMINATION: VITAL SIGNS: T-max is 99.0, pulse 86, BP 104/67, respirations 18-19, and satting 95% on room air. GENERAL: She is a well-nourished, mentally disabled lady who is currently in bed, not in acute distress, but not able to answer any questions. HEAD AND NECK: On the left scalp, there is redness in the anterior aspect of the scalp. There is a round scab formation with some tenderness to it and some mild induration. The redness/erythema is confluent and extensively to the left frontal facial area and superior aspect of the periorbital region. There is no evidence of conjunctivitis at this time. CARDIAC: Regular rate and rhythm without any murmurs. LUNGS: Decreased, but clear to auscultation bilaterally. ABDOMEN: Soft, supple, nontender, nondistended, normoactive bowel sounds. EXTREMITIES: There is no edema in lower extremities. NEUROLOGIC: Difficult to assess given patient's condition. LABORATORY DATA: White count 15.4, rest of CBC was within normal limits. There was 17% lymphocytes. Chem-20 was within normal limits. Lactic acid level is 1.0. C-reactive protein 9.5. ESR is pending. UA was essentially within normal limits. Head CT shows no acute intracranial abnormality. There is diffuse soft tissue swelling and inflammatory changes throughout left scalp extending to the left forehead and left preseptal region. There might be a small amount of fluid in these regions. Please correlate clinically as findings may be due to cellulitis and possible early phlegmon formation. There might be a sebaceous cyst on the left frontoparietal region. Mild atrophy also noted. There are sclerotic bilateral mastoid air cells may be due to underlying chronic inflammatory process. Orbital CT, soft tissue swelling and inflammatory changes throughout the left facial region, left forehead and left preseptal region. There might be minimal fluid in these regions and possible early phlegmon changes. IMPRESSION: 1. Left-sided scalp cellulitis with phlegmon formation, we cannot rule out abscess. 2. Left facial cellulitis and preseptal cellulitis of the left eye. 3. Chronic mastoiditis. 4. History of mental retardation and intellectual disability. 5. History of generilized muscular weakness. 6. History of arrhythmia, status post pacemaker. 7. History of left eye blindness. 8. History of acid reflux disease. 9. Leukocytosis. PLAN: The patient has been admitted to the medical/surgical floor for further management and care. The patient has been placed on IV antibiotics, namely Rocephin and vancomycin for broad coverage. Surgical consult will be asked for given possibility of phlegmon/abscess, possible I and D. The patient also will be started on a low dose NSAIDs and will be kept on other medications as scheduled. Daily labs will be done to assess leukocytosis. [facility]# [id number] [facility]
[2016-11-20] MEDS: cefTRIAXone 1 GM in 0.9% NS 50 ML IV SCH (16:40)
--- NOTE | 2016-11-20 18:48 | History & Physical ---
ADMIT DATE: 11/19/2016 REFERRING PHYSICIAN: Dr. Mijares. REASON FOR CONSULTATION: Scalp infection. Thank you for referring this patient to me. HISTORY OF PRESENT ILLNESS: This is an 86-year-old female with approximately 2-3-day history of infection in the left temporal scalp area. The patient has mental retardation, unable to give any information. LABORATORY STUDIES: WBC is elevated to 15,400 with 17% lymphocytes. The chemistry is essentially normal except for C-reactive protein high at 9.5. CT of the head was done as well as the orbits and this shows no acute intracranial abnormality. The orbital CT scan, there is some soft tissue swelling and inflammatory changes throughout the left facial region and left forehead and left preseptal region. PHYSICAL EXAMINATION: The patient is unable to give any information. There is an inflamed area in the left temporal scalp about 4 cm in size, which is tender. There is moderate surrounding cellulitis. RECOMMENDATIONS: We will observe and apply hot compress, but excision biopsy may be necessary. We will ask this if patient has conservator or family that can give consent. JOB# [id number]
[2016-11-21 07:02] LABS: % BASOPHILS 0.1 % (0.0-2.0); % EOSINOPHILS 5.3 % (0.0-5.0); % LYMPHOCYTES 23.2 % (20.0-50.0); % MONOCYTES 4.9 % (2.0-10.0); % NEUTROPHILS 66.5 % (40.0-80.0); HEMATOCRIT 38.7 % (35.0-45.0); HEMOGLOBIN 12.7 gm/dL (11.7-16.1); MEAN CORPUSCULAR HEMOGLOBIN 27.9 pg (27.0-31.0); MEAN CORPUSCULAR HGB CONC 32.9 pg (28.0-36.0); MEAN PLATELET VOLUME 8.2 fl; NEUTROPHILE ABSOLUTE 7.9 Th/cmm (1.8-8.0); PLATELET COUNT 376 Th/cmm (150-400); RED BLOOD COUNT 4.55 Mil/cmm (3.80-5.20); RED CELL DISTRIBUTION WIDTH 12.6 % (11.5-20.0); WHITE BLOOD COUNT 11.9 Th/cmm (4.8-10.8)
[2016-11-21 07:16] LABS: INR 0.92 (0.5-1.4); PROTHROMBIN TIME (TEST) 9.6 SECONDS (9.5-11.5)
[2016-11-21 07:28] LABS: BUN - UREA NITROGEN 22 mg/dL (7-25); BUN/CREATININE RATIO 31.4; CALCIUM SERUM 8.7 mg/dL (8.6-10.3); CARBON DIOXIDE 25.9 mEq/L (21.0-31.0); CHLORIDE 109 mEq/L (98-107); CREATININE - SERUM 0.7 mg/dL (0.6-1.2); GLUCOSE 94 mg/dL (70-105); MAGNESIUM 2.4 mg/dL (1.9-2.7); POTASSIUM SERUM 3.9 mEq/L (3.5-5.1); SODIUM SERUM 141 mEq/L (136-145)
[2016-11-21] MEDS: Calcium Carb/Vit D 500 mg/200 U Tab PO SCH ×2 (08:20→17:18)
[2016-11-21] MEDS ORDERED: Midazolam 1mg/ml 2 ml vial IV ONE (09:04)
--- NOTE | 2016-11-21 09:10 | Diagnostic Imaging Report ---
Portable chest x-ray HISTORY: Shortness of breath The heart size is difficult to assess with portable technique in a poor inspiration. Allowing for the poor inspiration, no acute focal pulmonary processes are seen. No hilar or mediastinal abnormalities. IMPRESSION: No acute pulmonary processes
[2016-11-21] MEDS: Multivitamin w/ Minerals Tab PO SCH (09:15)
--- NOTE | 2016-11-21 09:17 | General Progress Note ---
Subjective - Review of Systems Service Date: 11/21/16 Events since last encounter: Operation: incision and drainage of abscess left scalp C and S ordered local wound care ordered Objective - Results Result Diagrams: 11/21/16 06:15 11/21/16 06:15 Recent Labs: Laboratory Last Values WBC 11.9 Th/cmm (4.8-10.8) H 11/21/16 06:15 RBC 4.55 Mil/cmm (3.80-5.20) 11/21/16 06:15 Hgb 12.7 gm/dL (11.7-16.1) 11/21/16 06:15 Hct 38.7 % (35.0-45.0) 11/21/16 06:15 MCV 85.0 fl (81-100) 11/21/16 06:15 MCH 27.9 pg (27.0-31.0) 11/21/16 06:15 MCHC Differential 32.9 pg (28.0-36.0) 11/21/16 06:15 RDW 12.6 % (11.5-20.0) 11/21/16 06:15 Plt Count 376 Th/cmm (150-400) 11/21/16 06:15 MPV 8.2 fl 11/21/16 06:15 Neutrophils % 66.5 % (40.0-80.0) 11/21/16 06:15 Lymphocytes % 23.2 % (20.0-50.0) 11/21/16 06:15 Monocytes % 4.9 % (2.0-10.0) 11/21/16 06:15 Eosinophils % 5.3 % (0.0-5.0) H 11/21/16 06:15 Basophils % 0.1 % (0.0-2.0) 11/21/16 06:15 Neutrophils (Manual) 72 % (40-80) 11/19/16 09:05 Lymphocytes 17 % (20-50) L 11/19/16 09:05 Monocytes 8 % (2-10) 11/19/16 09:05 Eosinophils 3 % (0-5) 11/19/16 09:05 Platelet Estimate ADEQUATE (NORMAL) 11/19/16 09:05 ESR 17 mm/hr (0-30) 11/20/16 05:11 PT 9.6 SECONDS (9.5-11.5) 11/21/16 06:15 INR 0.92 (0.5-1.4) 11/21/16 06:15 PTT (Actin FS) 23.8 SECONDS (26.0-38.0) L 11/21/16 06:15 Sodium 141 mEq/L (136-145) 11/21/16 06:15 Potassium 3.9 mEq/L (3.5-5.1) 11/21/16 06:15 Chloride 109 mEq/L (98-107) H 11/21/16 06:15 Carbon Dioxide 25.9 mEq/L (21.0-31.0) 11/21/16 06:15 Anion Gap 10.0 (7.0-16.0) 11/21/16 06:15 BUN 22 mg/dL (7-25) 11/21/16 06:15 Creatinine 0.7 mg/dL (0.6-1.2) 11/21/16 06:15 Est GFR ( Amer) TNP 11/21/16 06:15 Est GFR (Non-Af Amer) TNP 11/21/16 06:15 BUN/Creatinine Ratio 31.4 11/21/16 06:15 Glucose 94 mg/dL (70-105) 11/21/16 06:15 POC Glucose 84 MG/DL (70 - 105) 11/21/16 06:44 Whole Bld Lactic Acid 1.02 mmol/L (0.60-1.99) 11/19/16 09:05 Calcium 8.7 mg/dL (8.6-10.3) 11/21/16 06:15 Magnesium 2.4 mg/dL (1.9-2.7) 11/21/16 06:15 Total Bilirubin 0.4 mg/dL (0.3-1.0) 11/20/16 05:11 AST 13 U/L (13-39) 11/20/16 05:11 ALT 12 U/L (7-52) 11/20/16 05:11 Alkaline Phosphatase 69 U/L (34-104) 11/20/16 05:11 C-Reactive Protein 9.5 mg/dL (0.0-0.9) H 11/19/16 09:05 Total Protein 6.0 gm/dL (6.0-8.3) 11/20/16 05:11 Albumin 3.1 gm/dL (3.7-5.3) L 11/20/16 05:11 Globulin 2.9 gm/dL 11/20/16 05:11 Albumin/Globulin Ratio 1.1 (1.0-1.8) 11/20/16 05:11 Urine Source CATH 11/19/16 14:30 Urine Color YELLOW 11/19/16 14:30 Urine Clarity CLEAR (CLEAR) 11/19/16 14:30 Urine pH 7.0 11/19/16 14:30 Ur Specific [place] 1.015 (1.005-1.030) 11/19/16 14:30 Urine Protein NEGATIVE mg/dL (NEGATIVE) 11/19/16 14:30 Urine Glucose (UA) NEGATIVE mg/dL (NEGATIVE) 11/19/16 14:30 Urine Ketones NEGATIVE mg/dL (NEGATIVE) 11/19/16 14:30 Urine Blood NEGATIVE (NEGATIVE) 11/19/16 14:30 Urine Nitrate NEGATIVE (NEGATIVE) 11/19/16 14:30 Urine Bilirubin NEGATIVE (NEGATIVE) 11/19/16 14:30 Urine Urobilinogen 0.2 E.U./dL (0.2 - 1.0) 11/19/16 14:30 Ur Leukocyte Esterase NEGATIVE (NEGATIVE) 11/19/16 14:30 Urine RBC NONE SEEN /hpf (0-5) 11/19/16 14:30 Urine WBC NONE SEEN /hpf (0-5) 11/19/16 14:30 Ur Epithelial Cells NONE SEEN /lpf (FEW) 11/19/16 14:30 Urine Bacteria NONE SEEN /hpf (NONE SEEN) 11/19/16 14:30 - Physical Exam Vitals and I&O: Vital Signs Temp 97.9 F 11/21/16 04:00 Pulse 76 11/21/16 04:00 Resp 18 11/21/16 04:00 BP 101/50 11/21/16 04:00 Pulse Ox 95 11/21/16 04:00 Intake & Output 11/20/16 11/21/16 11/21/16 18:59 06:59 18:59 Intake Total 1750 Balance 1750 Intake: Intake, IV Amount 250 Vancomycin HCl 0.75 gm In 250 Sodium Chloride 0.9% 250 ml @ 165 mls/hr IV Q24H [facility] Rx#:[id number] Oral 1500 Other: # Voids 4 Active Medications: Current Medications Acetaminophen (Tylenol) 650 mg PO Q4HR PRN PRN Reason: PAIN OR FEVER >100 Stop: 01/18/17 15:15 Last Admin: 11/21/16 03:40 Dose: 650 mg Bisacodyl (Dulcolax 10 Mg Supp) 10 mg RC Q96H PRN PRN Reason: Constipation Stop: 01/18/17 15:15 Calcium/Vitamin D (Oscal W/Vitamin D) 1 tab PO BID ROSALINO Stop: 01/18/17 16:59 Last Admin: 11/20/16 16:39 Dose: 1 tab Famotidine (Pepcid) 20 mg PO HS ROSALINO Stop: 01/18/17 20:59 Last Admin: 11/20/16 20:31 Dose: 20 mg Vancomycin HCl 0.75 gm/ Sodium (Chloride) 250 mls @ 165 mls/hr IV Q24H [facility] Stop: 01/19/17 09:59 Last Infusion: 11/20/16 12:20 Dose: Infused Ceftriaxone Sodium 1 gm/ (Sodium Chloride) 50 mls @ 100 mls/hr IV Q24HR [facility] Stop: 01/18/17 16:59 Last Admin: 11/20/16 16:40 Dose: 100 mls/hr Ibuprofen (Motrin) 400 mg PO TID [facility] Stop: 01/19/17 09:44 Last Admin: 11/20/16 20:31 Dose: 400 mg Lorazepam (Ativan) 2 mg IVP Q4HR PRN; Protocol PRN Reason: Agitation Stop: 01/18/17 09:02 Last Admin: 11/21/16 05:24 Dose: 2 mg Magnesium Hydroxide (Milk Of Magnesia) 30 ml PO Q72H PRN PRN Reason: Constipation Stop: 01/18/17 15:15 Miscellaneous (Vancomycin Iv Per Pharmacy) 1 ea MC PRN PRN PRN Reason: PROTOCOL Stop: 01/18/17 15:59 Sodium Phosphate (Fleet Enema) 135 ml RC Q96H PRN PRN Reason: Constipation Stop: 01/18/17 15:15 Tamoxifen Citrate (Nolvadex) 20 mg PO DAILY [facility] Stop: 01/19/17 08:59 Last Admin: 11/20/16 08:41 Dose: 20 mg Assessment/Plan - Problem List Patient Problems: All Active Problems Nasal bone fracture (Acute) S02.2XXA
[2016-11-21] MEDS: cefTRIAXone 1 GM in 0.9% NS 50 ML IV SCH (16:42)
[2016-11-22 06:11] LABS: % BASOPHILS 0.4 % (0.0-2.0); % EOSINOPHILS 5.1 % (0.0-5.0); % LYMPHOCYTES 17.9 % (20.0-50.0); % MONOCYTES 5.1 % (2.0-10.0); % NEUTROPHILS 71.5 % (40.0-80.0); HEMATOCRIT 37.4 % (35.0-45.0); HEMOGLOBIN 12.5 gm/dL (11.7-16.1); MEAN CELL VOLUME 86.5 fl (81-100); MEAN CORPUSCULAR HEMOGLOBIN 28.9 pg (27.0-31.0); MEAN CORPUSCULAR HGB CONC 33.5 pg (28.0-36.0); MEAN PLATELET VOLUME 7.8 fl; NEUTROPHILE ABSOLUTE 8.9 Th/cmm (1.8-8.0); PLATELET COUNT 368 Th/cmm (150-400); RED BLOOD COUNT 4.32 Mil/cmm (3.80-5.20); RED CELL DISTRIBUTION WIDTH 12.3 % (11.5-20.0)
[2016-11-22 06:14] LABS: ANION GAP 7.4 (7.0-16.0); BUN - UREA NITROGEN 17 mg/dL (7-25); BUN/CREATININE RATIO 28.3; CALCIUM SERUM 8.3 mg/dL (8.6-10.3); CARBON DIOXIDE 27.3 mEq/L (21.0-31.0); CHLORIDE 110 mEq/L (98-107); CREATININE - SERUM 0.6 mg/dL (0.6-1.2); GLUCOSE 102 mg/dL (70-105); POTASSIUM SERUM 3.7 mEq/L (3.5-5.1); SODIUM SERUM 141 mEq/L (136-145)
[2016-11-22 08:15] LABS: WHITE BLOOD COUNT 12.3 Th/cmm (4.8-10.8)
[2016-11-22] MEDS: Multivitamin w/ Minerals Tab PO SCH (08:51)
[2016-11-22] MEDS: Calcium Carb/Vit D 500 mg/200 U Tab PO SCH ×2 (08:51→17:40)
--- NOTE | 2016-11-22 10:15 | General Progress Note ---
Subjective - Review of Systems Service Date: 11/22/16 Events since last encounter: moderate drainage of incision local wound care Objective - Results Result Diagrams: 11/22/16 05:40 11/22/16 05:40 Recent Labs: Laboratory Last Values WBC 12.3 Th/cmm (4.8-10.8) H 11/22/16 05:40 RBC 4.32 Mil/cmm (3.80-5.20) 11/22/16 05:40 Hgb 12.5 gm/dL (11.7-16.1) 11/22/16 05:40 Hct 37.4 % (35.0-45.0) 11/22/16 05:40 MCV 86.5 fl (81-100) 11/22/16 05:40 MCH 28.9 pg (27.0-31.0) 11/22/16 05:40 MCHC Differential 33.5 pg (28.0-36.0) 11/22/16 05:40 RDW 12.3 % (11.5-20.0) 11/22/16 05:40 Plt Count 368 Th/cmm (150-400) 11/22/16 05:40 MPV 7.8 fl 11/22/16 05:40 Neutrophils % 71.5 % (40.0-80.0) 11/22/16 05:40 Lymphocytes % 17.9 % (20.0-50.0) L 11/22/16 05:40 Monocytes % 5.1 % (2.0-10.0) 11/22/16 05:40 Eosinophils % 5.1 % (0.0-5.0) H 11/22/16 05:40 Basophils % 0.4 % (0.0-2.0) 11/22/16 05:40 Neutrophils (Manual) 72 % (40-80) 11/19/16 09:05 Lymphocytes 17 % (20-50) L 11/19/16 09:05 Monocytes 8 % (2-10) 11/19/16 09:05 Eosinophils 3 % (0-5) 11/19/16 09:05 Platelet Estimate ADEQUATE (NORMAL) 11/19/16 09:05 ESR 17 mm/hr (0-30) 11/20/16 05:11 PT 9.6 SECONDS (9.5-11.5) 11/21/16 06:15 INR 0.92 (0.5-1.4) 11/21/16 06:15 PTT (Actin FS) 23.8 SECONDS (26.0-38.0) L 11/21/16 06:15 Sodium 141 mEq/L (136-145) 11/22/16 05:40 Potassium 3.7 mEq/L (3.5-5.1) 11/22/16 05:40 Chloride 110 mEq/L (98-107) H 11/22/16 05:40 Carbon Dioxide 27.3 mEq/L (21.0-31.0) 11/22/16 05:40 Anion Gap 7.4 (7.0-16.0) 11/22/16 05:40 BUN 17 mg/dL (7-25) 11/22/16 05:40 Creatinine 0.6 mg/dL (0.6-1.2) 11/22/16 05:40 Est GFR ( Amer) TNP 11/22/16 05:40 Est GFR (Non-Af Amer) TNP 11/22/16 05:40 BUN/Creatinine Ratio 28.3 11/22/16 05:40 Glucose 102 mg/dL (70-105) 11/22/16 05:40 POC Glucose 84 MG/DL (70 - 105) 11/21/16 06:44 Whole Bld Lactic Acid 1.02 mmol/L (0.60-1.99) 11/19/16 09:05 Calcium 8.3 mg/dL (8.6-10.3) L 11/22/16 05:40 Magnesium 2.4 mg/dL (1.9-2.7) 11/21/16 06:15 Total Bilirubin 0.4 mg/dL (0.3-1.0) 11/20/16 05:11 AST 13 U/L (13-39) 11/20/16 05:11 ALT 12 U/L (7-52) 11/20/16 05:11 Alkaline Phosphatase 69 U/L (34-104) 11/20/16 05:11 C-Reactive Protein 9.5 mg/dL (0.0-0.9) H 11/19/16 09:05 Total Protein 6.0 gm/dL (6.0-8.3) 11/20/16 05:11 Albumin 3.1 gm/dL (3.7-5.3) L 11/20/16 05:11 Globulin 2.9 gm/dL 11/20/16 05:11 Albumin/Globulin Ratio 1.1 (1.0-1.8) 11/20/16 05:11 Urine Source CATH 11/19/16 14:30 Urine Color YELLOW 11/19/16 14:30 Urine Clarity CLEAR (CLEAR) 11/19/16 14:30 Urine pH 7.0 11/19/16 14:30 Ur Specific [place] 1.015 (1.005-1.030) 11/19/16 14:30 Urine Protein NEGATIVE mg/dL (NEGATIVE) 11/19/16 14:30 Urine Glucose (UA) NEGATIVE mg/dL (NEGATIVE) 11/19/16 14:30 Urine Ketones NEGATIVE mg/dL (NEGATIVE) 11/19/16 14:30 Urine Blood NEGATIVE (NEGATIVE) 11/19/16 14:30 Urine Nitrate NEGATIVE (NEGATIVE) 11/19/16 14:30 Urine Bilirubin NEGATIVE (NEGATIVE) 11/19/16 14:30 Urine Urobilinogen 0.2 E.U./dL (0.2 - 1.0) 11/19/16 14:30 Ur Leukocyte Esterase NEGATIVE (NEGATIVE) 11/19/16 14:30 Urine RBC NONE SEEN /hpf (0-5) 11/19/16 14:30 Urine WBC NONE SEEN /hpf (0-5) 11/19/16 14:30 Ur Epithelial Cells NONE SEEN /lpf (FEW) 11/19/16 14:30 Urine Bacteria NONE SEEN /hpf (NONE SEEN) 11/19/16 14:30 - Physical Exam Vitals and I&O: Vital Signs Temp 98.6 F 11/22/16 08:00 Pulse 71 11/22/16 08:00 Resp 18 11/22/16 08:00 BP 111/68 11/22/16 08:00 Pulse Ox 97 11/22/16 08:00 Intake & Output 11/21/16 11/22/16 11/22/16 18:59 06:59 18:59 Intake Total 450 100 Balance 450 100 Intake: Oral 450 100 Other: # Voids 3 2 # Bowel Movements 0 0 Active Medications: Current Medications Acetaminophen (Tylenol) 650 mg PO Q4HR PRN PRN Reason: PAIN OR FEVER >100 Stop: 01/18/17 15:15 Last Admin: 11/22/16 05:17 Dose: 650 mg Bisacodyl (Dulcolax 10 Mg Supp) 10 mg RC Q96H PRN PRN Reason: Constipation Stop: 01/18/17 15:15 Calcium/Vitamin D (Oscal W/Vitamin D) 1 tab PO BID ROSALINO Stop: 01/18/17 16:59 Last Admin: 11/22/16 08:51 Dose: 1 tab Famotidine (Pepcid) 20 mg PO HS ROSALINO Stop: 01/18/17 20:59 Last Admin: 11/21/16 21:40 Dose: Not Given Ceftriaxone Sodium 1 gm/ (Sodium Chloride) 50 mls @ 100 mls/hr IV Q24HR [facility] Stop: 01/18/17 16:59 Last Admin: 11/21/16 16:42 Dose: 100 mls/hr Vancomycin HCl 1 gm/ Sodium (Chloride) 250 mls @ 165 mls/hr IV Q24H [facility] Stop: 01/20/17 10:59 Last Admin: 11/21/16 11:06 Dose: 165 mls/hr Ibuprofen (Motrin) 400 mg PO TID ROSALINO Stop: 01/19/17 09:44 Last Admin: 11/22/16 08:51 Dose: 400 mg Lorazepam (Ativan) 2 mg IVP Q4HR PRN; Protocol PRN Reason: Agitation Stop: 01/18/17 09:02 Last Admin: 11/22/16 05:37 Dose: 2 mg Magnesium Hydroxide (Milk Of Magnesia) 30 ml PO Q72H PRN PRN Reason: Constipation Stop: 01/18/17 15:15 Miscellaneous (Vancomycin Iv Per Pharmacy) 1 ea MC PRN PRN PRN Reason: PROTOCOL Stop: 01/18/17 15:59 Sodium Phosphate (Fleet Enema) 135 ml RC Q96H PRN PRN Reason: Constipation Stop: 01/18/17 15:15 Tamoxifen Citrate (Nolvadex) 20 mg PO DAILY [facility] Stop: 01/19/17 08:59 Last Admin: 11/22/16 08:50 Dose: 20 mg Assessment/Plan - Problem List Patient Problems: All Active Problems Nasal bone fracture (Acute) S02.2XXA
--- NOTE | 2016-11-22 11:54 | Operative Report ---
DATE OF SURGERY: 11/21/2016 PREOPERATIVE DIAGNOSIS: Abscess, left temporal scalp. POSTOPERATIVE DIAGNOSIS: Abscess, left temporal scalp. OPERATION DONE: Incision and drainage of abscess. SURGEON: Giles Ha M.D. ANESTHESIA: MAC. ANESTHESIOLOGIST: Hong Chamberlain M.D. DETAILS OF PROCEDURE: The left side of the scalp was shaved around the area of the abscess. Then, 1% lidocaine was used to infiltrate around the abscess following IV sedation. An incision was made through the apex of the abscess and thick purulent material was drained. Cultures were taken. The wound was packed with iodoform gauze. The patient tolerated the procedure well. JOB# [id number]
[2016-11-22] MEDS: cefTRIAXone 1 GM in 0.9% NS 50 ML IV SCH (17:50)
[2016-11-23] MEDS: Calcium Carb/Vit D 500 mg/200 U Tab PO SCH ×2 (09:09→17:44)
[2016-11-23] MEDS: Multivitamin w/ Minerals Tab PO SCH (09:10)
[2016-11-23 10:03] LABS: % BASOPHILS 1.3 % (0.0-2.0); % EOSINOPHILS 3.4 % (0.0-5.0); % LYMPHOCYTES 16.4 % (20.0-50.0); % MONOCYTES 3.3 % (2.0-10.0); % NEUTROPHILS 75.6 % (40.0-80.0); HEMATOCRIT 37.4 % (35.0-45.0); HEMOGLOBIN 12.8 gm/dL (11.7-16.1); MEAN CELL VOLUME 85.5 fl (81-100); MEAN CORPUSCULAR HEMOGLOBIN 29.3 pg (27.0-31.0); MEAN CORPUSCULAR HGB CONC 34.2 pg (28.0-36.0); MEAN PLATELET VOLUME 7.6 fl; NEUTROPHILE ABSOLUTE 8.1 Th/cmm (1.8-8.0); PLATELET COUNT 380 Th/cmm (150-400); RED BLOOD COUNT 4.38 Mil/cmm (3.80-5.20); RED CELL DISTRIBUTION WIDTH 12.3 % (11.5-20.0); WHITE BLOOD COUNT 10.8 Th/cmm (4.8-10.8)
[2016-11-23 10:31] LABS: ANION GAP 11.8 (7.0-16.0); BUN - UREA NITROGEN 11 mg/dL (7-25); BUN/CREATININE RATIO 18.3; CALCIUM SERUM 8.7 mg/dL (8.6-10.3); CHLORIDE 108 mEq/L (98-107); CREATININE - SERUM 0.6 mg/dL (0.6-1.2); GLUCOSE 138 mg/dL (70-105); POTASSIUM SERUM 3.8 mEq/L (3.5-5.1); SODIUM SERUM 142 mEq/L (136-145)
[2016-11-24] MEDS: Multivitamin w/ Minerals Tab PO SCH (08:23)
[2016-11-24] MEDS: Calcium Carb/Vit D 500 mg/200 U Tab PO SCH ×2 (08:24→16:42)
--- NOTE | 2016-11-25 03:46 | Discharge Summary ---
DATE OF DISCHARGE: 11/24/2016 ADMITTING DIAGNOSES: 1. Left scalp cellulitis/abscess/phlegmon formation. 2. Left preseptal cellulitis of the left eye. 3. Leukocytosis. SECONDARY DIAGNOSES: Include: 1. History of mental retardation. 2. History of generalized muscle weakness. 3. History of arrhythmia, status post pacemaker placement. 4. History of left eye blindness. 5. History of acid reflux disease. 6. History of breast cancer, on Tamoxifen. DISCHARGE DIAGNOSES: 1. Left-sided scalp abscess, status post incision and drainage. 2. Left scalp cellulitis, left periorbital cellulitis, improved. 3. Leukocytosis, resolved. 4. Complicated wound infection with Methicillin-resistant Staphylococcus aureus. CONSULTANTS: Dr. Ha, Surgery. MAJOR PROCEDURES: There was an orbital CT done on 11/19/2016 showing soft tissue swelling and inflammatory changes throughout the left facial region, left forehead, and left preseptal region. There was a head CT showing no acute intracranial abnormality. There was diffuse soft tissue swelling and inflammatory changes throughout the left scalp extending to the left forehead and left preseptal region. There may be a small amount of fluid in these regions and from 11/20/2016 there was an I and D done by Dr. Ha without complications. BRIEF HOSPITAL COURSE: An 86-year-old female with multiple medical problems including intellectual disability, anxiety, anemia, acid reflux disease, presented to the ER with a couple-day history of scalp cellulitis, left forehead, and periorbital redness and swelling. The patient underwent the above-mentioned diagnostic procedures. She was placed on empiric IV antibiotics namely Rocephin and vancomycin and eventually underwent I and D done by surgery. The patient's initial vital signs were significant for low-grade fevers and her initial labs included a white count of 15.4. The white count improved to a level of 10.8 on 11/23/2016 and her wound culture did come back as MRSA. The sensitivities did show multiple sensitivities including clindamycin which was started a day prior to discharge. She has remained on vancomycin for her entire stay. Clinically speaking, her redness has improved as well as swelling. CONDITION ON DISCHARGE: Stable. MEDICATIONS ON DISCHARGE: Clindamycin 300 mg t.i.d. x 10 days, acetaminophen p.r.n., Dulcolax p.r.n., calcium with vitamin D daily, Pepcid 20 mg daily, Motrin 400 daily with meals, Fleet enema p.r.n., Robitussin DM p.r.n., magnesium hydroxide p.r.n., multivitamins p.r.n., and Tamoxifen 20 mg daily. DISPOSITION: The patient will be discharged to [facility] given MRSA isolation under the care of Dr. Pedroza. [facility]# [id number] [facility] MEDICAL CENTERDevin
== END 2016-11-24 19:30 | disposition short-term general hospital (02) | DRG 580 ==
LOC: ER 08:13 → MSI 13:45
PROVIDERS: ADMIT Internal Medicine; ATTEND Internal Medicine
PROC: 0J900ZZ Drainage of Scalp Subcutaneous Tissue and Fascia, Open Approach (ICD-10-PCS; principal; 2016-11-22)
DX: L02.811 Cutaneous abscess of head [any part, except face] (principal); E44.0 Moderate protein-calorie malnutrition; F03.90 Unspecified dementia, unspecified severity, without behavioral disturbance, psychotic disturbance, mood disturbance, and anxiety; C50.919 Malignant neoplasm of unspecified site of unspecified female breast; D64.9 Anemia, unspecified; F41.9 Anxiety disorder, unspecified; L03.811 Cellulitis of head [any part, except face]; H70.10 Chronic mastoiditis, unspecified ear; F79 Unspecified intellectual disabilities; I49.9 Cardiac arrhythmia, unspecified; H54.42 Blindness, left eye, normal vision right eye; K21.9 Gastro-esophageal reflux disease without esophagitis; M19.90 Unspecified osteoarthritis, unspecified site; L03.213 Periorbital cellulitis; Z68.23 Body mass index [BMI] 23.0-23.9, adult
CPT/HCPCS: 36415-UA; 70450-TC; 70480-TC; 71010-TC; 80048-TC; 80053-TC; 80202-TC; 81001-TC; 82948-90; 83605; 83735-TC; 85007-TC; 85025-TC; 85027-TC; 85610-TC; 85652-TC; 86141-TC; 87070-90; 87075-90; 87205-90; 93005; J0690; J0696; J2060; J2250; J2704; J3370; V2790; Z7502; Z7610

== ENCOUNTER 2016-12-21 21:13 | Emergency (ER) | payer MEDICARE, MEDICAID ==
--- NOTE | 2016-12-21 22:00 | ED Physician Chart ---
Chief Complaint/HPI - Patient Information Date Seen:: 12/21/16 Time Seen:: 21:15 Chief Complaint:: "body tissue coming out of her vagina" History of Present Illness:: Brought in by ambulance from nursing facility because pt was noticed to have "body tissue" in vaginal area. Pt appears to be comfortable in no distress. H & P are limited because pt has dementia and is not cooperative. Info is primarily from review of transfer documents. Allergies:: Allergies Allergy/AdvReac Type Severity Reaction Status Date / Time No Known Allergies Allergy Verified 10/05/16 18:52 Vitals:: Vital Signs - 8 hr 12/21/16 21:20 Temp 98.5 F HR 89 RR 18 BP 143/88 O2 Sat % 95 Historian:: Medical Records (from transferring facility.) Family MD/PCP:: Dr. Pedroza LMP:: Postmenopausal Review:: Nurse's Note Reviewed, Transfer documents Reviewed Review of Systems - Review of Systems General/Constitutional: Other (Pt does not cooperate for ROS.) Past Medical History - Past Medical History Past Medical History: PUD/GERD, Dementia (with encephalopathy), Other ( L eye blindness) Family History: Other (Pt does not cooperate to provide info on FHx.) Social History: Care Facility, Other (Pt does not cooperate to provide info on SHx.) Employment:: Retired. Surgical History: other (Pt does not cooperate to provide info on Surgical Hx.) Psychiatricy History: Dementia Medication: Reviewed Family Medical History - Family Member Mother History Unknown: Yes Ethnicity: Living Status: Unknown Physical Exam - Physical Examination General/Constitutional: Awake, Well-developed, well-nourished, Alert, No distress, Non-toxic appearing Other Gen/Cons comments:: Breathes comfortably but not cooperative. Head: Atraumatic Other Eyes comments:: Chronic changes noticed in L eye with opacification of cornea. R eye is reactive to light and is unremarkable. Pt does not cooperate for full eye exam. Skin: Well hydrated, No lymphadenopathy ENMT: External ears, nose nl, Nasal exam nl, Oropharynx nl Neck: Nontender, Full ROM w/o pain, No JVD, No nuchal rigidity, No mass, No stridor Respiratory: Nl effort/Exclusion, Clear to Auscultation, No Wheeze/Rhonchi/Rales Cardio Vascular: RRR, No murmur, gallop, rubs GI: No tenderness/rebounding/guarding, No organomegaly, No hernia, Normal BS's, Nondistended, No mass/bruits Other GI comments:: Abdomen is soft. : No CVA tenderness, NL external genitalia, No discharge, No CMT Other comments:: Uterine prolapse noticed that is spontaneously reduced back to vaginal canal. No bleeding or discharge. Nontender. No adnexal tenderness or abnormal findings detected otherwise. Pelvic exam is limited because pt is not cooperative. Note: Pelvic exam was performed in the presence and assistance of female nurse Terra. Extremities: No edema Other Neuro/Psych comments:: Alert. Spontaneous movements noticed in all 4 extremities. Pt does not cooperate for full neurological exam. ED Septic Shock - . Is Septic Shock (SBP<90, OR Lactate>4 mmol\\L) present?: No - <6hrs of presentation: Vital Signs: Vital Signs - 8 hr 12/21/16 21:20 Temp 98.5 F HR 89 RR 18 BP 143/88 O2 Sat % 95 Reassessment (Disposition) - Reassessment Reassessment:: 2211 Pt remains stable. Case was discussed with Dr. Mijares, who covers for Dr. Pedroza. Dr. Mijares concurred that pt is to be sent back to nursing facility by [facility]. He will relate to Dr. Pedroza to follow up on pt tomorrow and to have [employer] referral arranged by Dr. Pedroza for further evaluation Reassessment Condition:: Improved - Diagnosis Diagnosis:: Uterine prolapse that is easily reduced. Stable and asymptomatic. - Patient Disposition Discharge/Transfer:: [facility] SN[facility] Transport Method:: BLS Time:: 22:20 Condition at Disposition:: Stable, Improved ED Discharge Plan - Patient Disposition Admit/Discharge/Transfer: PT DISCHARGED HOME Condition at Disposition: Stable Instructions: Pelvic Exam Accepting Physician: Stan Pedroza [Primary Care Provider] -
== END 2016-12-21 23:50 | disposition home or self-care (01) ==
LOC: ER 21:13
DX: N81.4 Uterovaginal prolapse, unspecified (principal)
CPT/HCPCS: Z7502

== ENCOUNTER 2019-01-09 07:43 | Emergency (ER) | payer MEDICARE, MEDICAID ==
--- NOTE | 2019-01-09 08:52 | ED Physician Chart ---
ED Chief Complaint/HPI - Patient Information Date Seen:: 01/09/19 Time Seen:: 08:46 Chief Complaint:: nose bleeds History of Present Illness:: 88 yr old fema;e with mental disability from half-way with nose bleed earlier presumed spontaneous that has subsided after the facility put cols compressors ice bag etc pt here with mild fever and tachycardia for evaluation Allergies:: Allergies Allergy/AdvReac Type Severity Reaction Status Date / Time vancomycin Allergy Verified 01/09/19 08:01 Vitals:: Vital Signs - 8 hr 01/09/19 07:50 Temp 99.1 F HR 126 RR 18 BP 126/82 O2 Sat % 95 ED Review of Systems - Review of Systems General/Constitutional: Fever Eyes: No loss of vision ENT: No earache Neck: No neck pain Cardio Vascular: No chest pain Pulmonary: No SOB GI: No vomiting G/U: No dysuria Endocrine: No polyuria Allergic/Immuno: No urticaria Neurological: No syncope ED Past Medical History - Past Medical History Past Medical History: Other (blind lt eye lt breast ca pud gerd athritus uti encepalopathy) Family Medical History - Family Member Mother History Unknown: Yes Ethnicity: Living Status: Unknown ED Physical Exam - Physical Examination Head: Atraumatic Other Eyes comments:: blind lt eye Other Skin comments:: excoriation mid abd and keeps scratching vaginal area ENMT: External ears, nose nl Respiratory: Nl effort/Exclusion Other Cardio Vascular comments:: sinus tachycardia GI: No tenderness/rebounding/guarding Extremities: No tenderness or effusion ED Septic Shock - . Is Septic Shock (SBP<90, OR Lactate>4 mmol\L) present?: No - <6hrs of presentation: Vital Signs: Vital Signs - 8 hr 01/09/19 07:50 Temp 99.1 F HR 126 RR 18 BP 126/82 O2 Sat % 95 ED Reassessment (Disposition) - Reassessment Reassessment:: epistaxis resolved - Diagnosis Diagnosis:: as above - Patient Disposition Discharge/Transfer:: [facility] - SNF Condition at Disposition:: Stable
[2019-01-09 09:10] LABS: % EOSINOPHILS 2.5 % (0.0-5.0); % LYMPHOCYTES 22.7 % (20.0-50.0); % MONOCYTES 2.3 % (2.0-10.0); % NEUTROPHILS 72.5 % (40.0-80.0); EOSINOPHILE ABSOLUTE 0.3 Th/cmm (0.1-0.4); HEMATOCRIT 38.8 % (41.0-60); LYMPHOCYTE ABSOLUTE 2.5 Th/cmm (1.5-3.0); MEAN CELL VOLUME 84.7 fl (81-100); MEAN CORPUSCULAR HEMOGLOBIN 28.3 pg (27.0-31.0); MEAN CORPUSCULAR HGB CONC 33.4 pg (28.0-36.0); MONOCYTE ABSOLUTE 0.3 Th/cmm (0.3-1.0); NEUTROPHILE ABSOLUTE 8.1 Th/cmm (1.8-8.0); PLATELET COUNT 295 Th/cmm (150-400); RED BLOOD COUNT 4.58 Mil/cmm (3.80-5.20); RED CELL DISTRIBUTION WIDTH 13.3 % (11.5-20.0); WHITE BLOOD COUNT 11.2 Th/cmm (4.8-10.8)
[2019-01-09 09:14] LABS: URINE SOURCE CATH
[2019-01-09 09:30] LABS: ALB/GLOB RATIO 1.5 (1.0-1.8); ALBUMIN 3.9 gm/dL (3.7-5.3); ALKALINE PHOSPHATASE 88 U/L (34-104); ANION GAP 13.6 (7.0-16.0); BILIRUBIN,TOTAL 0.3 mg/dL (0.3-1.0); BUN - UREA NITROGEN 20 mg/dL (7-25); CALCIUM SERUM 9.2 mg/dL (8.6-10.3); CARBON DIOXIDE 22.6 mEq/L (21.0-31.0); CHLORIDE 104 mEq/L (98-107); CREATININE - SERUM 0.7 mg/dL (0.6-1.2); GLUCOSE 103 mg/dL (70-105); POTASSIUM SERUM 4.2 mEq/L (3.5-5.1); SGOT 15 U/L (13-39); SGPT/ALT 8 U/L (7-52); SODIUM SERUM 136 mEq/L (136-145); TOTAL PROTEIN,SERUM 6.5 gm/dL (6.0-8.3)
[2019-01-09] MEDS ORDERED: cefTRIAXone 2 GM in Sodium Chloride 0.9% 100 ML IV ONE (09:54)
[2019-01-09 09:56] LABS: URINE COLOR YELLOW
[2019-01-09 09:57] LABS: URINE BILIRUBIN NEGATIVE (NEGATIVE); URINE CLARITY CLOUDY (CLEAR); URINE GLUCOSE (UA) NEGATIVE (NEGATIVE); URINE MICROSCOPIC INDICATED? YES
[2019-01-09 09:58] LABS: URINE BLOOD NEGATIVE (NEGATIVE); URINE KETONE NEGATIVE (NEGATIVE); URINE PH 6.5 (4.6 - 8.0); URINE PROTEIN NEGATIVE (NEGATIVE); URINE UROBILINOGEN 0.2 E.U./dL (0.2 - 1.0)
[2019-01-09 09:59] LABS: URINE LEUKOCYTE ESTERASE MODERATE (NEGATIVE); URINE NITRATE POSITIVE (NEGATIVE)
[2019-01-09 10:00] LABS: URINE EPITHELIAL CELLS NONE SEEN /lpf (FEW); URINE RBC NONE SEEN /hpf (0-5)
[2019-01-09 10:01] LABS: URINE BACTERIA MANY /hpf (NONE SEEN)
== END 2019-01-09 10:55 ==
LOC: ER 07:43
DX: N39.0 Urinary tract infection, site not specified (principal); R00.0 Tachycardia, unspecified; Z88.1 Allergy status to other antibiotic agents
CPT/HCPCS: 99283; 96365; 36415; 85025; 87086; 81001; 80053; J2060; J0696; Z7502